=== PATIENT | male | born 1950 | race Caucasian/White ===

== ENCOUNTER 2018-08-10 18:59 | Emergency (ER) | payer MEDICARE, OTHER ==
--- OUTSIDE RECORDS SUMMARY | 2018-08-10 19:20 | XMS REPORT ---
:1950 External Reference #:[id number] [facility] Address [address], [address] [place] [address] Phone [phone] Care Team Providers Name Role Phone Sim Allen MD Care Team Information Hand Mixer Unavailable Sim Allen MD Primary Care Physician Unavailable Payers Type Date Identification Numbers Payment Provider Subscriber Medicare Primary Policy Number: [id number] Medicare Cj Goode PayID: [id number] [address] [place] [address] Commercial Policy Number: [id number] for Life WPS Cj Goode PayID: [id number] [address] [place] [address] Problems Date Description Provider Status Onset: 11/15/2012 Diverticular disease of colon Tariq Cardenas Active M.D. Onset: 07/11/2018 Hypothyroidism Mya Le M.D. Active Onset: 07/11/2018 Streptococcal infectious disease Mya Le M.D. Active Onset: 07/11/2018 Bacteremia Mya Le M.D. 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 Active Family History Date Family Member(s) Problem(s) Comments General Heart Disease Father Heart Attack Father Heart Disease Mother Cancer bone/In her 80's Children 5 Siblings 8 First Sister due to Heart Disease () Uncle Heart Attack Social History Type Date Description Comments Marital Status Lives With Diet Patient follows no dietary restrictions Occupation [employer] Work Status Currently Working Cigarette Use Former Cigarette Smoker 1 Pack Daily Cigarette Use Pack Years - 25 Cigarette Use 1994 Quit ETOH Use Rarely consumes alcohol Smoking Patient is a former smoker Recreational Drug Use Denies Drug Use Daily Caffeine Consumes on average 1 pot of regular coffee per day Allergies, Adverse Reactions, Alerts Date Description Reaction Status Severity Comments 10/15/2009 NKDA active Medications Medication Date Status Form Strength Qnty SIG Indications Ordering Provider Levothyroxine Active Tablets 75mcg 60tabs 1 po qd Unknown Sodium 000 Multivitamins Active Capsules 1 by Unknown 000 mouth every day Pantoprazole Active Tablets DR 40mg 1 by Unknown Sodium 000 mouth every day Viagra Active Tablets 100mg use as Unknown 000 needed Tamsulosin HCL Active Capsules 0.4mg 1 caps Unknown 000 by mouth every day Amoxicillin Active Capsules 500mg 84caps take A49.1 Mezu, 000 1gram (2 Mya, caps) by M.D. mouth three times a day x 14 days R78.81 Cialis - 07/11/2018 Hx Tablets 5mg 1 by mouth every day Unknown Vital Signs Date Vital Result Comment 07/18/2018 BP Systolic Sitting Left Arm 123 mmHg BP Diastolic Sitting Left Arm 73 mmHg Body Temperature 97.0 F Heart Rate 64 /min Height 70 inches 5'10" Weight 168.00 lb BMI (Body Mass Index) 24.1 kg/m2 BSA (Body Surface Area) 1.94 m2 [place] body weight in kilograms 75 07/11/2018 BP Systolic Sitting Left Arm 104 mmHg BP Diastolic Sitting Left Arm 64 mmHg Body Temperature 97.4 F Heart Rate 72 /min Height 70 inches 5'10" Weight 161.00 lb BMI (Body Mass Index) 23.1 kg/m2 BSA (Body Surface Area) 1.90 m2 [place] body weight in kilograms 75 09/12/2012 BP Systolic Sitting Left Arm 124 mmHg BP Diastolic Sitting Left Arm 70 mmHg Heart Rate 69 /min Height 70 inches 5'10" Weight 163.00 lb BMI (Body Mass Index) 23.4 kg/m2 BSA (Body Surface Area) 1.91 m2 Results Test Date Test Result H/L Range Note Blood Culture 07/11/2018 Blood Culture Aerobic NO GROWTH: FINAL <SEE 1 , 2 NOTE> Blood Culture Anaerobic NO GROWTH: FINAL <SEE NOTE> 1, 3 CBC W/Automated Diff 07/11/2018 White Blood Count 5.8 K/uL 3.4-10.5 1 Red Blood Count 4.06 M/uL Low 4.20-5.80 1 Hemoglobin 12.5 gm/dL Low 12.8-17.0 1 Hematocrit 38.2 % 38.0-48.0 1 Mean Cell Volume 94.1 fl 80.0-96.0 1 Mean Corpuscular HGB 30.8 pg 27.0-33.0 1 Mean Corpuscular HGB Conc 32.7 g/dL 31.7-36.0 1 Platelet Count 218 K/uL 155-360 1 Red Cell Distri Width SD 41.6 fl 36-51 1 Red Cell Distri Width %CV 12.3 % 11.6-15.8 1 Mean Platelet Volume 9.4 fL 6.6-10.6 1 Neut% 69.0 % 33.0-73.0 1 Lymph % 20.6 % 20.0-42.0 1 [place] % 7.5 % 0.0-10.0 1 Eo% 2.4 % 0.0-6.6 1 Bas% 0.5 % 0.0-1.1 1 Neut# 3.98 K/uL 1.8-7.0 1 Lymph # 1.19 K/uL 1.0-4.0 1 [place] # 0.43 K/uL 0.0-0.8 1 Eos # 0.14 K/uL 0.0-0.5 1 Baso # 0.03 K/uL 0.0-0.1 1 Comprehensive Metabolic Panel 07/11/2018 Glucose 88 mg/dL 74-106 1 BUN 19 mg/dL High 7-18 1 Creatinine 0.9 mg/dL 0.6-1.3 1 Glom Filtration Rate, Estimate >60 mL/min >60 1 If >60 mL/min >60 1, 4 BUN/Creat 21.1 ratio 1 Sodium 138 mmol/L 136-145 1 Potassium 4.3 mmol/L 3.5-5.1 1 Chloride 103 mmol/L 98-107 1 Carbon Dioxide 34 mmol/L High 21-32 1 Anion Gap 1 mEq/L Low 8-16 1 Calcium 8.5 mg/dL 8.5-10.1 1 Total Protein 7.0 g/dL 6.4-8.2 1 Albumin 3.4 g/dL 3.4-5.0 1 Globulin 3.6 g/dL 1.9-4.3 1 Alb/Glob 0.9 ratio 1 Bilirubin,Total 0.5 mg/dL 0.2-1.0 1 Sgot/Ast 19 U/L 15-37 1 SGPT/Alt 55 U/L 12-78 1 Alkaline Phosphatase 82 U/L 45-117 1 Laboratory test 07/11/2018 C-Reactive 26.9 mg/L High <3.0 1 finding Protein,Quant Laboratory test 11/06/2012 Polyp Colon And/Or See Note hp 5 finding Rectum Laboratory test 09/28/2009 Glucose 89 mg/dL 76-115 6, 7 finding Protime 09/28/2009 Protime 14.1 seconds 11.8-14.6 6 Inr 1.1 0.9-1.1 6, 8 Laboratory test finding 09/28/2009 Act Partial Thrombo 25.5 seconds 23.4- 37.4 6, 9 Time 1 R78.81 2 NO GROWTH: FINAL REPORT 3 NO GROWTH: FINAL REPORT 4 Note: Persistent reduction for 3 months or more in an eGFR <60 mL/min/1.73 m2 defines CKD. Patients with eGFR values >/=60 mL/min/1.73 m2 may also have CKD if evidence of persistent proteinuria is present. The original MDRD equation for estimated GFR is not valid for patients less than 18 years of age. Additional information may be found at www.[facility].org. 5 OPERATION/PROCEDURE Colonoscopy DIAGNOSIS: "RECTUM, POLYPECTOMY": HYPERPLASTIC POLYPS. Nate GROSS "RECTAL POLYP". The specimen is received in an appropriately labeled container. This contains four rounded pink colored pieces of soft tissue measuring up to 0.3 cm.; filtered and submitted in toto within a single cassette. ANSHUL/noheliaf MICROSCOPIC Sections show colonic mucosa lined by an increased number of goblet cells. The glands have a serrated, saw tooth appearance. The nuclei are bland, and basal. PRE OPERATIVE DIAGNOSIS Screening REVIEW CODE CODE: I DOUGIE Herndon MD 1228 [id number] QUERY: IS THE PATIENT FASTING? U IS PATIENT ON HEPARIN PROTOCOL ? N IS PATIENT ON ANTICOAGULANTS? UNKNOWN QUERY: Anticoagulant Therapy? QUERY: Date of Last Dose: QUERY: Time of Last Dose: 7 IS PATIENT ON HEPARIN PROTOCOL ? N IS PATIENT ON ANTICOAGULANTS? UNKNOWN QUERY: Anticoagulant Therapy? QUERY: Date of Last Dose: QUERY: Time of Last Dose: 8 THERAPEUTIC INR RANGE: 2.0 - 3.0 DVT, Pulmonary embolus, prophylaxis against venous thrombosis or systemic embolization in high risk patients. 2.5 - 3.5 Mechanical heart valves IS PATIENT ON HEPARIN PROTOCOL ? N IS PATIENT ON ANTICOAGULANTS? UNKNOWN QUERY: Anticoagulant Therapy? QUERY: Date of Last Dose: QUERY: Time of Last Dose: 9 QUERY: IS THE PATIENT FASTING? U Procedures Date CPT Code Description Status 08/18/2015 67847 Nerve Conduction 7-8 Studies Completed 08/18/2015 09946 Needle Electromyography Complete, Five Or More Muscles Completed Studied 11/06/2012 05930 Colonoscopy Completed 09/29/2009 60703 Endoscope, direct placement gastrostomy tube Completed 05/22/2009 59084 EKG Interpretation And Report Only Completed Encounters Type Date Location Provider CPT E/M Dx Office Visit 07/18/2018 3:45p Physical Mya Saenz M.D. 06977 R78.81 Infectious Disease A49.1 C76.0 E03.9 Office Visit 07/11/2018 12:30p Physical Mya Saenz M.D. 67823 R78.81 Infectious Disease A49.1 E03.9 R13.10 C76.0 Office Visit 11/15/2012 1:30p Surgical Office Tariq Cardenas 42662 V67.09 Alondra Banuelos 562.10 V76.51 Office Visit 09/12/2012 8:30a Surgical Office Tariq Cardenas 01793 V76.51 Alondra Banuelos Office Visit 01/13/2010 2:00p Surgical Office Tariq Cardenas 65584 787.20 Alondra Banuelos Office Visit 09/29/2009 7:30a Tariq Cardenas 03370 787.20 Alondra Banuelos Plan of Care 07/18/2018 - Mya Le M.D.R78.81 BacteremiaFollow up:prnA49.1 Streptococcal infection, unspecified siteC76.0 Malignant neoplasm of head, face and neckE03.9 Hypothyroidism, unspecified
[2018-08-10 19:26] VITALS: BP 138/73
--- NOTE | 2018-08-10 19:53 | UC ---
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 Has been around who is also ill with similar symptoms. " -she is also here for OV in exam room. -no copd or asthma. non-smoker -ca in lymph nodes rt neck 2008 s/p disection w/o any recurrence. -no fevers. no sinus pain. no ear pain. no wheezing - History of Current Complaint Chief Complaint: UCGeneralIllness Stated Complaint: COUGH, SORE THROAT Time Seen by Provider: 08/10/18 19:39 Pain Intensity: 0 - Allergies/Home Medications Allergies/Adverse Reactions: Allergies Allergy/AdvReac Type Severity Reaction Status Date / Time No Known Allergies Allergy Verified 08/10/18 19:24 Home Medications: Home Medications Tamsulosin CAP* [Flomax CAP*] 0.4 mg PO BEDTIME 08/10/18 [History Confirmed 03/21] PMH/Surg Hx/FS Hx/Imm Hx Previously Healthy: Yes - Surgical History Surgical History: Yes Surgery Procedure, Year, and Place: Lymph nodes in neck removed 2008 - Family History Known Family History: Negative: Respiratory Disease - no asthma - Social History Alcohol Use: Rare Substance Use Type: None Smoking Status (MU): Never Smoked Tobacco Review of Systems All Other Systems Reviewed And Are Negative: Yes Constitutional: Positive: Negative Skin: Positive: Negative Eyes: Positive: Negative ENT: Positive: Sore Throat Respiratory: Positive: Cough Cardiovascular: Positive: Negative Gastrointestinal: Positive: Negative Genitourinary: Positive: Negative Motor: Positive: Negative Neurovascular: Positive: Negative Musculoskeletal: Positive: Negative Neurological: Positive: Negative Psychological: Positive: Negative Is Patient Immunocompromised?: No Physical Exam Triage Information Reviewed: Yes Appearance: Well-Appearing, No Pain Distress, Well-Nourished Vital Signs: Initial Vital Signs Temp 98.8 F 08/10/18 19:21 Pulse 86 08/10/18 19:21 Resp 15 08/10/18 19:21 BP 138/73 08/10/18 19:21 Pulse Ox 98 08/10/18 19:21 Vital Signs Reviewed: Yes ENT Exam: Normal ENT: Positive: Pharyngeal erythema - mild w/ + PND, Nasal congestion, Nasal drainage, TMs normal. Negative: TM bulging, TM dull, TM red, Sinus tenderness Dental Exam: Normal Neck exam: Normal Neck: Positive: Supple, Nontender, Other: - firm rt neck post-op. Negative: Nuchal Rigidity Respiratory Exam: Normal Respiratory: Positive: Lungs clear, Normal breath sounds, No respiratory distress, No accessory muscle use. Negative: Crackles, Rhonchi, Stridor, Wheezing Cardiovascular Exam: Normal Cardiovascular: Positive: RRR, No Murmur, Pulses Normal Abdomen Description: Positive: Nontender, Soft Musculoskeletal Exam: Normal Neurological Exam: Normal Psychological Exam: Normal Skin Exam: Normal Throat Pain/Nasal Course/Dx - Course Course Of Treatment: no evidence of bacterial infection. supportive treatment. - Differential Dx/Diagnosis Differential Diagnosis/HQI/PQRI: Pharyngitis, Sinusitis, Tonsillitis, URI Provider Diagnosis: Upper respiratory infection Discharge - Sign-Out/Discharge Documenting (check all that apply): Patient Departure All imaging exams completed and their final reports reviewed: No Studies - Discharge Plan Condition: Stable Disposition: HOME Patient Education Materials: Upper Respiratory Infection (ED) Referrals: Sim Allen MD [Primary Care Provider] - 5 Days Additional Instructions: Drink plenty of fluids and get plenty of rest. You can use OTC flonase for nasal congestion. - Billing Disposition and Condition Condition: STABLE Disposition: Home
== END 2018-08-10 20:17 | disposition home or self-care (01) ==
LOC: UCCORT 18:59
DX: J06.9 Acute upper respiratory infection, unspecified (principal)
CPT/HCPCS: 99201; G0463